=== PATIENT | male | born 1975 | race African-American/Black ===

== ENCOUNTER 2019-03-27 09:09 | Emergency (ER) | payer SELFPAY ==
[~2019-03-27] VITALS: Ht 180.3 cm; Wt 95.4 kg
[~2019-03-27 09:09] MED LIST: ASPI-1198 PO
[2019-03-27 11:16] VITALS: BP 126/86
== END 2019-03-27 11:18 | disposition home or self-care (01) ==
LOC: EMS 09:10
DX: S01.01XD Laceration without foreign body of scalp, subsequent encounter (principal); F17.210 Nicotine dependence, cigarettes, uncomplicated; X58.XXXD Exposure to other specified factors, subsequent encounter